=== PATIENT | male | born 1960 | race Asian ===

== ENCOUNTER 2018-07-16 08:53 | Outpatient (CLI) | payer OTHER ==
[2018-07-16 09:21] LABS: PLATELET COUNT 247 K/uL (142-355)
[2018-07-16 09:31] LABS: POTASSIUM 4.5 mmol/L (3.6-5.2)
== END 2018-07-16 22:25 | disposition home or self-care (01) ==
LOC: LABW 08:53
PROVIDERS: Nurse Practitioner Family
DX: E66.01 Morbid (severe) obesity due to excess calories (principal); I10 Essential (primary) hypertension; R53.83 Other fatigue; E78.2 Mixed hyperlipidemia; Z12.5 Encounter for screening for malignant neoplasm of prostate; R73.9 Hyperglycemia, unspecified
CPT/HCPCS: 36415; 80053; 80061; 83036; 84154; 84443; 85027

== ENCOUNTER 2019-01-21 09:43 | Outpatient (CLI) | payer OTHER ==
[2019-01-21 10:23] LABS: PLATELET COUNT 242 K/uL (142-355)
[2019-01-21 10:37] LABS: POTASSIUM 4.5 mmol/L (3.6-5.2)
== END 2019-01-21 21:05 | disposition home or self-care (01) ==
LOC: LABW 09:43
PROVIDERS: Family Medicine
DX: E55.9 Vitamin D deficiency, unspecified (principal); E53.8 Deficiency of other specified B group vitamins; R51 Headache; E11.65 Type 2 diabetes mellitus with hyperglycemia; E78.2 Mixed hyperlipidemia
CPT/HCPCS: 36415; 80053; 80061; 82306; 82607; 83036; 84443; 85027

== ENCOUNTER 2019-02-21 08:46 | Outpatient (CLI) | payer OTHER | END 2019-02-21 22:34 | disposition home or self-care (01) | LOC: US 08:46 | DX: R94.4 Abnormal results of kidney function studies (principal) ==

== ENCOUNTER 2019-05-07 09:43 | Outpatient (CLI) | payer OTHER ==
[2019-05-07 10:07] LABS: PLATELET COUNT 221 K/uL (142-355)
[2019-05-07 11:16] LABS: POTASSIUM 4.8 mmol/L (3.6-5.2)
== END 2019-05-07 22:34 | disposition home or self-care (01) ==
LOC: LABW 09:43
PROVIDERS: Internal Medicine Nephrology
DX: I12.9 Hypertensive chronic kidney disease with stage 1 through stage 4 chronic kidney disease, or unspecified chronic kidney disease (principal); N18.3 Chronic kidney disease, stage 3 (moderate); D63.1 Anemia in chronic kidney disease; E11.9 Type 2 diabetes mellitus without complications; E78.5 Hyperlipidemia, unspecified
CPT/HCPCS: 80053; 81000; 82043; 82570; 82607; 82728; 82746; 83540; 83550; 83970; 84100; 84155; 85027

== ENCOUNTER 2019-05-21 09:25 | Outpatient (CLI) | payer OTHER | END 2019-05-21 23:36 | disposition home or self-care (01) | LOC: US 09:25 | DX: E11.9 Type 2 diabetes mellitus without complications (principal); I10 Essential (primary) hypertension; E78.5 Hyperlipidemia, unspecified; N18.3 Chronic kidney disease, stage 3 (moderate); N18.9 Chronic kidney disease, unspecified; D63.1 Anemia in chronic kidney disease ==

== ENCOUNTER 2019-09-16 12:37 | Outpatient (CLI) | payer OTHER | END 2019-09-16 22:31 | disposition home or self-care (01) | LOC: RAD 12:37 | DX: Z01.818 Encounter for other preprocedural examination (principal) ==

== ENCOUNTER 2019-11-12 09:53 | Outpatient (CLI) | payer OTHER | END 2019-11-12 20:48 | disposition home or self-care (01) | LOC: RESP 09:53 | DX: Z01.810 Encounter for preprocedural cardiovascular examination (principal); R94.31 Abnormal electrocardiogram [ECG] [EKG]; I45.10 Unspecified right bundle-branch block; I10 Essential (primary) hypertension; E11.9 Type 2 diabetes mellitus without complications; R06.01 Orthopnea; E78.5 Hyperlipidemia, unspecified | CPT/HCPCS: 93306 ==

== ENCOUNTER 2019-11-18 10:14 | Outpatient (CLI) | payer OTHER | END 2019-11-18 20:10 | disposition home or self-care (01) | LOC: RESP 10:14 | DX: Z01.818 Encounter for other preprocedural examination (principal); R94.31 Abnormal electrocardiogram [ECG] [EKG] ==

== ENCOUNTER 2019-12-23 09:06 | Outpatient (CLI) | payer OTHER ==
[~2019-12-23] VITALS: Ht 175.3 cm; Wt 144.2 kg
== END 2019-12-23 19:46 | disposition home or self-care (01) ==
LOC: NM 09:06
DX: R94.39 Abnormal result of other cardiovascular function study (principal); R07.89 Other chest pain
CPT/HCPCS: A9500; J2785

== ENCOUNTER 2022-02-21 09:33 | Outpatient (CLI) | payer OTHER | END 2022-02-21 19:41 | disposition home or self-care (01) | LOC: RAD 09:33 | PROVIDERS: ATTEND Nurse Practitioner Primary Care | DX: M25.562 Pain in left knee (principal) ==

== ENCOUNTER 2022-08-24 08:34 | Outpatient (CLI) | payer OTHER ==
[2022-08-24 09:38] LABS: PLATELET COUNT 242 K/uL (142-355)
[2022-08-24 10:45] LABS: POTASSIUM 4.6 mmol/L (3.6-5.2)
== END 2022-08-24 23:07 | disposition home or self-care (01) ==
LOC: LABW 08:34
PROVIDERS: ATTEND Internal Medicine Nephrology
DX: I12.9 Hypertensive chronic kidney disease with stage 1 through stage 4 chronic kidney disease, or unspecified chronic kidney disease (principal); N18.31 Chronic kidney disease, stage 3a; E55.9 Vitamin D deficiency, unspecified; E11.9 Type 2 diabetes mellitus without complications; E78.2 Mixed hyperlipidemia
CPT/HCPCS: 36415; 80053; 80061; 82306; 82570; 83036; 83540; 83550; 84156; 84439; 84443; 85027

== ENCOUNTER 2023-04-23 09:43 | Outpatient (CLI) | payer OTHER ==
[2023-04-23 09:58] LABS: PLATELET COUNT 224 K/uL (142-355)
[2023-04-23 11:07] LABS: POTASSIUM 5.3 mmol/L (3.6-5.2)
== END 2023-04-23 19:21 | disposition home or self-care (01) ==
LOC: LABW 09:43
PROVIDERS: ATTEND Internal Medicine Nephrology
DX: N18.31 Chronic kidney disease, stage 3a (principal)
CPT/HCPCS: 36415; 80053; 80061; 82306; 82570; 83540; 83550; 84156; 85027

== ENCOUNTER 2023-06-29 10:57 | Outpatient (CLI) | payer OTHER ==
[2023-06-29 12:48] LABS: PLATELET COUNT 237 K/uL (142-355)
[2023-06-29 13:14] LABS: POTASSIUM 4.3 mmol/L (3.6-5.2)
== END 2023-06-29 20:44 | disposition home or self-care (01) ==
LOC: LABW 10:57
PROVIDERS: ATTEND Internal Medicine Nephrology
DX: E11.9 Type 2 diabetes mellitus without complications (principal); N18.31 Chronic kidney disease, stage 3a; D63.1 Anemia in chronic kidney disease; E78.2 Mixed hyperlipidemia; E55.9 Vitamin D deficiency, unspecified; I12.9 Hypertensive chronic kidney disease with stage 1 through stage 4 chronic kidney disease, or unspecified chronic kidney disease
CPT/HCPCS: 80053; 80061; 82607; 82728; 82746; 83036; 83540; 83550; 84443; 85027